=== PATIENT | female | born 1990 | race Caucasian/White ===

== ENCOUNTER 2017-06-09 16:08 | Outpatient (CLI) | payer OTHER ==
[2017-06-09 17:44] LABS: ADD UMIC YES; UR ASCORBIC ACID NEGATIVE (NEGATIVE); UR BACTERIA FEW /HPF (NONE SEEN); UR BILIRUBIN (Dip) NEGATIVE (NEGATIVE); UR BLOOD (Dip) NEGATIVE (NEGATIVE); UR CLARITY SLIGHTLY CLOUDY (CLEAR); UR COLOR AMBER (YELLOW); UR GLUCOSE (Dip) NEGATIVE (NEGATIVE); UR KETONES (Dip) NEGATIVE (NEGATIVE); UR LEUKOCYTE ESTERASE (Dip) NEGATIVE Leu/ul (NEGATIVE); UR MUCUS MANY /HPF (NONE SEEN); UR NITRITE (Dip) NEGATIVE (NEGATIVE); UR RBC 1 /HPF (0-5); UR SPECIFIC GRAVITY (Dip) 1.034 (1.003-1.030); UR SQUAMOUS EPITHELIAL CELL MODERATE /HPF (FEW); UR TOTAL PROTEIN (Dip) 1+ mg/dl (NEGATIVE); UR UROBILINOGEN (Dip) 1+ mg/dL (NEGATIVE); UR WBC 2 /HPF (0-5)
== END 2017-06-09 18:00 | disposition home or self-care (01) ==
LOC: OBT 16:08 → L-D 16:10 → OBT 18:00
DX: O26.892 Other specified pregnancy related conditions, second trimester (principal); Z3A.24 24 weeks gestation of pregnancy; M54.5 Low back pain
CPT/HCPCS: 76817; 81001

== ENCOUNTER 2017-08-29 19:25 | Outpatient (CLI) | payer OTHER | END 2017-08-29 22:05 | disposition home or self-care (01) | LOC: OBT 19:25 → L-D 19:26 → OBT 22:05 | DX: O26.893 Other specified pregnancy related conditions, third trimester (principal); M54.9 Dorsalgia, unspecified; O34.219 Maternal care for unspecified type scar from previous cesarean delivery; Z3A.37 37 weeks gestation of pregnancy | CPT/HCPCS: Z7500 ==

== ENCOUNTER 2017-09-10 06:35 | Inpatient (IN) | payer OTHER ==
[2017-09-10 06:59] LABS: ADD MAN DIFF? NO
[2017-09-10] MEDS ORDERED: CARBOPROST 250 MCG INJ IM ×2 (07:00→15:00)
[2017-09-10] MEDS ORDERED: METHYLERGONOVINE 0.2 MG INJ IM ×2 (07:00→15:00)
[2017-09-10] MEDS ORDERED: MISOPROSTOL 200 MCG TAB PR ×2 (07:00→15:00)
[2017-09-10] MEDS ORDERED: OXYTOCIN 30 UNITS/LR 500 ML IV ×2 (07:00→15:00)
[2017-09-10 07:03] LABS: WHITE BLOOD COUNT 12.8 10^3/ul (4.8-10.8)
[2017-09-10 07:03] LABS: BASOPHILS % 0.3 % (0.0-2.0); EOSINOPHILS # 0.1 10^3/ul (0.0-0.5); EOSINOPHILS % 0.6 % (0.0-7.0); HEMATOCRIT 34.8 % (37.0-47.0); HEMOGLOBIN 11.9 g/dl (12.0-16.0); LYMPHOCYTES # 2.2 10^3/ul (0.8-2.9); LYMPHOCYTES % 17.3 % (15.0-51.0); MEAN CORPUSCULAR HEMOGLOBIN 31.2 pg (29.0-33.0); MEAN CORPUSCULAR HGB CONC 34.2 g/dl (32.0-37.0); MEAN CORPUSCULAR VOLUME 91.3 fl (82.0-101.0); MONOCYTE # 0.7 10^3/ul (0.3-0.9); MONOCYTES % 5.4 % (0.0-11.0); NEUTROPHIL # 9.7 10^3/ul (1.6-7.5); NEUTROPHILS % 75.7 % (39.0-77.0); PLATELET COUNT 141 10^3/UL (140-415); RED BLOOD COUNT 3.81 10^6/ul (4.20-5.40); RED CELL DISTRIBUTION WIDTH 12.9 % (11.5-14.5)
[2017-09-10 07:33] LABS: INR 0.84; PROTIME 11.6 Sec (11.9-14.9); PT RATIO 0.9
[2017-09-10 07:34] LABS: PARTIAL THROMBOPLASTIN TIME 27.2 Sec (25.0-35.0)
[2017-09-10 07:36] LABS: CANNABINOIDS Negative (NEGATIVE)
[2017-09-10 07:38] LABS: AMPHETAMINE/METHAMPHETAMINE Negative (NEGATIVE); BARBITURATES Negative (NEGATIVE); BENZODIAZEPINES Negative (NEGATIVE); COCAINE Negative (NEGATIVE); OPIATES Negative (NEGATIVE)
[2017-09-10 07:51] LABS: HEPATITIS B SURFACE ANTIGEN NEGATIVE (NEGATIVE)
[2017-09-10] MEDS: LACTATED RINGER'S 1,000 ML IV ×2 (07:53→11:55)
[2017-09-10] MEDS ORDERED: BUPIVACAINE 0.75%/DEXT (SPINAL) 2 ML INJ (08:37)
[2017-09-10] MEDS ORDERED: morphine SULFATE/PF (10 MG/10 ML) INJ (08:37)
[2017-09-10] MEDS ORDERED: FENTAnyl 50 MCG/ML VIAL (08:38)
[2017-09-10] MEDS ORDERED: PHENYLephrine (100 MCG/ML) 5ML SYG ×2 (08:55→09:08)
[2017-09-10] MEDS ORDERED: DEXAMETHASONE 4 MG/ML 1 ML INJ (08:55)
[2017-09-10] MEDS ORDERED: HYDROmorphONE 0.5 MG/0.5 ML SYG IV ×2 (09:00)
[2017-09-10] MEDS ORDERED: ONDANSETRON 4 MG INJ IV (09:00)
[2017-09-10] MEDS ORDERED: DIPHENHYDRAMINE 50 MG INJ IV (09:00)
[2017-09-10] MEDS ORDERED: NALOXONE (0.4 MG/ML) INJ IV (09:00)
[2017-09-10] MEDS ORDERED: ZOLPIDEM 5 MG TAB PO (09:00)
[2017-09-10] MEDS: OXYTOCIN 30 UNITS/LR 500 ML IV ×4 (10:58→20:37)
[2017-09-10] MEDS: KETOROLAC 30 MG INJ IV ×2 (11:58→20:07)
[2017-09-10] MEDS: CEFAZOLIN 2 GM/50 ML (PMX) 50 ML IV (12:14)
[2017-09-10 14:54] LABS: RAPID PLASMA REAGIN NONREACTIVE (NR)
[2017-09-10] MEDS ORDERED: DEXTROSE 5%-LR 1,000 ML IV (14:59)
[2017-09-10] MEDS ORDERED: METHYLERGONOVINE 0.2 MG TAB PO (15:00)
[2017-09-10] MEDS ORDERED: LANOLIN 7 GM TUBE TOP (15:00)
[2017-09-10] MEDS: OXYCODONE/ACETAMINOPHEN (5/325) TAB PO ×2 (15:00→23:00)
[2017-09-10] MEDS: SENNA/DOCUSATE NA (8.6MG/50MG) TAB PO (20:46)
[2017-09-10] MEDS ORDERED: IBUPROFEN 800 MG TAB PO (22:00)
[2017-09-11] MEDS: LACTATED RINGER'S 1,000 ML IV (06:41)
[2017-09-11 06:51] LABS: ADD MAN DIFF? NO
[2017-09-11 06:57] LABS: WHITE BLOOD COUNT 14.9 10^3/ul (4.8-10.8)
[2017-09-11 06:57] LABS: BASOPHILS % 0.1 % (0.0-2.0); EOSINOPHILS # 0.1 10^3/ul (0.0-0.5); EOSINOPHILS % 0.3 % (0.0-7.0); HEMATOCRIT 31.3 % (37.0-47.0); HEMOGLOBIN 10.5 g/dl (12.0-16.0); LYMPHOCYTES # 2.3 10^3/ul (0.8-2.9); LYMPHOCYTES % 15.6 % (15.0-51.0); MEAN CORPUSCULAR HEMOGLOBIN 31.3 pg (29.0-33.0); MEAN CORPUSCULAR HGB CONC 33.5 g/dl (32.0-37.0); MEAN CORPUSCULAR VOLUME 93.2 fl (82.0-101.0); MEAN PLATELET VOLUME 11.8 fl (7.4-10.4); MONOCYTE # 0.9 10^3/ul (0.3-0.9); NEUTROPHIL # 11.5 10^3/ul (1.6-7.5); NEUTROPHILS % 77.5 % (39.0-77.0); PLATELET COUNT 120 10^3/UL (140-415); RED BLOOD COUNT 3.36 10^6/ul (4.20-5.40)
[2017-09-11] MEDS: OXYCODONE/ACETAMINOPHEN (5/325) TAB PO ×5 (06:59→23:26)
[2017-09-11] MEDS: SENNA/DOCUSATE NA (8.6MG/50MG) TAB PO ×2 (08:44→21:41)
[2017-09-12] MEDS: OXYCODONE/ACETAMINOPHEN (5/325) TAB PO ×3 (04:05→20:12)
[2017-09-12] MEDS: IBUPROFEN 800 MG TAB PO ×3 (06:00→22:00)
[2017-09-12] MEDS: SENNA/DOCUSATE NA (8.6MG/50MG) TAB PO ×2 (09:18→20:12)
[2017-09-13] MEDS: IBUPROFEN 800 MG TAB PO ×2 (05:43→14:00)
[2017-09-13] MEDS: OXYCODONE/ACETAMINOPHEN (5/325) TAB PO (07:00)
[2017-09-13] MEDS: SENNA/DOCUSATE NA (8.6MG/50MG) TAB PO (08:36)
[2017-09-13] MEDS: DIPHTH/TET/ACEL PERTUSS (ADULT) 0.5 ML VIAL IM* (09:00)
[2017-09-13] MEDS ORDERED: MEASLES,MUMPS,RUBELLA VACCINE INJ SC* (09:00)
== END 2017-09-13 13:30 | disposition home or self-care (01) | DRG 766 ==
LOC: L-D 06:35 → PP1 13:15
PROC: 10D00Z1 Extraction of Products of Conception, Low, Open Approach (ICD-10-PCS; principal; 2017-09-10 08:00)
DX: O34.219 Maternal care for unspecified type scar from previous cesarean delivery (principal); Z37.0 Single live birth
CPT/HCPCS: 80307; 85025; 85610; 85730; 86592; 86850; 86900; 86901; 87340; 99464

== ENCOUNTER 2018-08-29 10:35 | Emergency (ER) | payer OTHER ==
[2018-08-29] MEDS: DEXAMETHASONE 10 MG/ML 1 ML INJ IM (12:35)
[2018-08-29] MEDS: KETOROLAC 30 MG INJ IM (12:35)
[2018-08-29] MEDS: METHOCARBAMOL 750 MG TAB PO (12:57)
== END 2018-08-29 13:24 | disposition home or self-care (01) ==
LOC: FTE 13:24
DX: M54.5 Low back pain (principal)
CPT/HCPCS: 81025; 96372; 99284-25